=== PATIENT | male | born 1955 | race Caucasian/White ===

== ENCOUNTER 2017-05-27 15:17 | Inpatient (IN) | payer OTHER ==
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
[2017-05-27 18:07] LABS: BASO % 0.8 % (0-2.0); EOS % 0.3 % (0-4.5); HEMATOCRIT 41.8 % (35.4-49); HEMOGLOBIN 14.3 GM/dL (11.7-16.9); LYMPH % 14.6 % (8-40); MCH 31.7 pg (25.7-33.7); MCHC 34.1 g/dl (32.0-35.9); MEAN PLT VOLUME 9.5 fl (7.5-11.1); MONO % 8.8 % (3.8-10.2); NEUT % 75.5 % (42.8-82.8); PLATELET COUNT 255 K/MM3 (134-434); RBC 4.49 M/mm3 (4.00-5.60); RDW 12.9 % (11.9-15.9); WHITE BLOOD COUNT 13.3 K/mm3 (4.0-10.0)
[2017-05-27 18:52] LABS: ALBUMIN 3.8 g/dl (3.4-5.0); ANION GAP 12 (8-16); BILIRUBIN,TOTAL 0.8 mg/dL (0.2-1.0); BLOOD UREA NITROGEN 9 mg/dL (7-18); CALCIUM 8.9 mg/dL (8.5-10.1); CHLORIDE 99 mmol/L (98-107); CO2 22 mmol/L (21-32); CREATININE 0.8 mg/dL (0.7-1.3); SGPT/ALT 26 U/L (12-78); SODIUM 133 mmol/L (136-145); TOT PROT 7.3 g/dl (6.4-8.2)
[2017-05-27 18:53] LABS: ALK PHOS 115 U/L (45-117)
[2017-05-27 19:18] LABS: POTASSIUM 4.5 mmol/L (3.5-5.1); SGOT/AST 19 U/L (15-37)
[2017-05-27 19:19] LABS: GLUCOSE,RANDOM 324 mg/dL (74-106)
[2017-05-27] MEDS ORDERED: PIPERACILLIN/TAZOB 4.5 GM 4.5 GM/100 ML BAG IVPB ONE (19:27)
[2017-05-27] MEDS ORDERED: PIPERACILLIN/TAZOB 3.375 GM/50 ML PRE-DOCKED IVPB ONE (19:34)
[2017-05-27] MEDS ORDERED: morphine CARPU-JECT 2 MG/1 ML DISP.SYRIN IVPUSH ONE ×2 (19:35→22:05)
[2017-05-27] MEDS ORDERED: morphine CARPU-JECT 2 MG/1 ML DISP.SYRIN ONE ×2 (19:51→22:49)
[2017-05-27] MEDS ORDERED: PIPERACILLIN/TAZOB 4.5 GM 4.5 GM/100 ML BAG IVPB SCH (22:00)
--- NOTE | 2017-05-27 23:18 | PDOC ---
*Physical Exam - Vital Signs Last Vital Signs Temp Pulse Resp BP Pulse Ox 98.2 F 102 H 19 146/84 97 05/27/17 15:24 05/27/17 15:24 05/27/17 15:24 05/27/17 15:24 05/27/17 15:24 ED Treatment Course - LABORATORY CBC & Chemistry Diagram: 05/27/17 17:46 05/27/17 17:46 - ADDITIONAL ORDERS Additional order review: Laboratory Results 05/27/17 17:46 Sodium 133 L Potassium 4.5 Chloride 99 Carbon Dioxide 22 Anion Gap 12 BUN 9 Creatinine 0.8 Creat Clearance w eGFR > 60 Random Glucose 324 H* Calcium 8.9 Total Bilirubin 0.8 AST 19 ALT 26 Alkaline Phosphatase 115 Total Protein 7.3 Albumin 3.8 05/27/17 17:46 RBC 4.49 MCV 93.0 MCHC 34.1 RDW 12.9 MPV 9.5 Neutrophils % 75.5 Lymphocytes % 14.6 Monocytes % 8.8 Eosinophils % 0.3 Basophils % 0.8 - Medications Given in the ED: ED Medications Discontinued Medications Generic Name Dose Route Start Last Admin Trade Name Prakash PRN Reason Stop Dose Admin Morphine Sulfate 2 mg 05/27/17 19:35 05/27/17 19:48 Morphine Injection - IVPUSH 05/27/17 19:36 2 mg ONCE ONE Administration Morphine Sulfate 2 mg 05/27/17 22:05 05/27/17 22:41 Morphine Injection - IVPUSH 05/27/17 22:06 2 mg ONCE ONE Administration Piperacillin Sod/Tazobactam Sod 3.375 gm 05/27/17 19:34 05/27/17 19:30 Zosyn 3.375gm Ivpb (Pre-Docked) IVPB 05/27/17 19:35 3.375 gm ONCE ONE Administration Protocol *DC/Admit/Observation/Transfer Diagnosis at time of Disposition: Cellulitis Qualifiers: Site of cellulitis: extremity Site of cellulitis of extremity: toe Laterality: right Qualified Code(s): L03.031 - Cellulitis of right toe Diabetes Qualifiers: Diabetes mellitus type: type 2 Diabetes mellitus complication status: with skin complications Diabetes mellitus complication detail: with other skin complication Diabetes mellitus detention insulin use: without exterminator use Qualified Code(s): E11.628 - Type 2 diabetes mellitus with other skin complications - Discharge Dispostion Condition at time of disposition: Stable Admit: Yes - Referrals Referrals: Amadeo Costello MD [Staff Physician] - - Patient Instructions - Post Discharge Activity
--- NOTE | 2017-05-27 23:20 | PDOC ---
Attending Attestation - Resident Resident Name: MalathimoniqueDeshawn - ED Attending Attestation I have performed the following: I have examined & evaluated the patient, The case was reviewed & discussed with the resident, I agree w/resident's findings & plan, Exceptions are as noted - HPI HPI: 05/27/17 23:20 62 yo male p/w early cellulitis on his foot - Physicial Exam PE: 05/27/17 23:20 wnwd 62 yo male p/w swollen,painful foot with erythema and streaking up his kay 05/27/17 23:21 head ncat neck supple eyes karen eomi lungs cta b/l cvs [id number] abd soft,nontender ,no guarding extremities- foot is swollen,tender and erythematous w streaking up his kay neuro axox3,ambulatory - Medical Decision Making 06/08/17 20:26 IMP cellulitis
[2017-05-28 02:04] VITALS: BMI 27.1
[2017-05-28] MEDS ORDERED: INSULIN (NOVOLOG) ASPART 100 UNITS/ML 10ML VIAL SQ ONE (02:30)
[2017-05-28] MEDS: metFORMIN HCL 500 MG TABLET (FP) PO SCH ×2 (06:39→17:08)
[2017-05-28] MEDS ORDERED: INSULIN (NOVOLOG) ASPART 100 UNITS/ML 10ML VIAL ONE ×2 (06:57→21:06)
[2017-05-28] MEDS ORDERED: INSULIN DETEMIR 100 UNITS/ML MDV SQ ONE (06:57)
[2017-05-28] MEDS ORDERED: PT OWN MED DRAWER 7, Y5N ONE ×3 (06:57→21:07)
[2017-05-28] MEDS ORDERED: INSULIN DETEMIR 100 UNITS/ML MDV SQ SCH (07:00)
[2017-05-28 07:32] LABS: BASO % 0.8 % (0-2.0); EOS % 1.1 % (0-4.5); HEMATOCRIT 41.5 % (35.4-49); LYMPH % 21.6 % (8-40); MCH 31.3 pg (25.7-33.7); MCHC 33.6 g/dl (32.0-35.9); MONO % 10.9 % (3.8-10.2); NEUT % 65.6 % (42.8-82.8); PLATELET COUNT 246 K/MM3 (134-434); RBC 4.46 M/mm3 (4.00-5.60); RDW 12.9 % (11.9-15.9); WHITE BLOOD COUNT 12.4 K/mm3 (4.0-10.0)
[2017-05-28 08:03] LABS: ALBUMIN 3.3 g/dl (3.4-5.0); ALK PHOS 103 U/L (45-117); ANION GAP 12 (8-16); BILIRUBIN,TOTAL 0.6 mg/dL (0.2-1.0); BLOOD UREA NITROGEN 11 mg/dL (7-18); CALCIUM 8.6 mg/dL (8.5-10.1); CHLORIDE 100 mmol/L (98-107); CO2 25 mmol/L (21-32); CREATININE 0.8 mg/dL (0.7-1.3); GLUCOSE,RANDOM 278 mg/dL (74-106); POTASSIUM 3.9 mmol/L (3.5-5.1); SGOT/AST 7 U/L (15-37); SGPT/ALT 21 U/L (12-78); SODIUM 137 mmol/L (136-145); TOT PROT 6.6 g/dl (6.4-8.2)
--- NOTE | 2017-05-28 08:45 | PN ---
Progress Note (short form) - Note Progress Note: ID Full note dictated Selected Entries 05/28/17 06:00 Temperature 99.2 F Pulse Rate 80 Respiratory 18 Rate Blood Pressure 126/66 Soft tissue swelling left 5th toe and to lesser degree 4h toe with ulcer between 4th 5th toe painful to examine Redness dorsum of long winder tender along with red swollen toes Laboratory Tests 05/27/17 05/27/17 05/28/17 17:46 17:46 07:15 WBC 13.3 H Hgb 14.3 Plt Count 255 BUN 11 D Random Glucose 324 H* Assessment Diabetes and SSTI left foot and 5th toe with ulcer Plan Blood cultures Unasyn 1.5grs q 6 H CRP Vascular evaluation Alise ALEX Problem List - Problems (1) Cellulitis Code(s): L03.90 - CELLULITIS, UNSPECIFIED Qualifiers: Site of cellulitis: extremity Site of cellulitis of extremity: toe Laterality: right Qualified Code(s): L03.031 - Cellulitis of right toe (2) Diabetes Code(s): E11.9 - TYPE 2 DIABETES MELLITUS WITHOUT COMPLICATIONS Qualifiers: Diabetes mellitus type: type 2 Diabetes mellitus complication status: with skin complications Diabetes mellitus complication detail: with other skin complication 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
[2017-05-28] MEDS ORDERED: CEFTRIAXONE 1 G/50 ML PREMIX 50 ML IVPB SCH (10:00)
[2017-05-28] MEDS ORDERED: FLU VACCINE QUAD 60 MCG/0.5 ML (MDV 17-18) IM ONE (10:00)
[2017-05-28] MEDS: AMPICILLIN NA/SULBACTAM NA 1.5 GM in SODIUM CHLORIDE 100 ML IVPB SCH ×3 (10:25→21:14)
[2017-05-28] MEDS: HEPARIN NA (PORCINE) 5,000 UNITS/ML 1ML VIAL SQ SCH ×2 (10:27→21:14)
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
[2017-05-28] MEDS: INSULIN SLIDING SCALE (NOVOLOG) 1 VIAL SQ SCH ×3 (12:05→21:16)
--- NOTE | 2017-05-28 12:37 | PN ---
Progress Note (short form) - Note Progress Note: Vascular Surgery Pt seen and examined. Right fifth toe swelling with cellulitis of right foot. Pt has palpable DP and PT pulses. ID treating with IV antbiotics. Will order MRI of right foot to make sure there is no collection, and to rule out osteo. Will follow Krzysztof perera DO
[2017-05-28] MEDS ORDERED: ACETAMINOPHEN 325 MG TABLET (FP) PO PRN (13:29)
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
[2017-05-28 18:00] LABS: URINE APPEARANCE CLEAR; URINE BILIRUBIN NEGATIVE (NEGATIVE); URINE BLOOD NEGATIVE (NEGATIVE); URINE COLOR LTYELLOW; URINE GLUCOSE (UA) 3+ (NEGATIVE); URINE KETONE TRACE (NEGATIVE); URINE LEUK ESTERASE NEGATIVE (NEGATIVE); URINE NITRITE NEGATIVE (NEGATIVE); URINE PROTEIN NEGATIVE (NEGATIVE); URINE UROBILINOGEN NEGATIVE mg/dL (0.2-1.0)
[2017-05-28] MEDS: INSULIN DETEMIR 100 UNITS/ML MDV SQ SCH (21:17)
[2017-05-28] MEDS: oxyCODONE HCL 5 MG TABLET PO PRN (22:02)
[2017-05-29] MEDS: AMPICILLIN NA/SULBACTAM NA 1.5 GM in SODIUM CHLORIDE 100 ML IVPB SCH ×4 (02:21→20:56)
[2017-05-29] MEDS: metFORMIN HCL 500 MG TABLET (FP) PO SCH ×2 (06:25→16:48)
[2017-05-29] MEDS: INSULIN SLIDING SCALE (NOVOLOG) 1 VIAL SQ SCH ×4 (06:26→21:14)
[2017-05-29] MEDS: INSULIN DETEMIR 100 UNITS/ML MDV SQ SCH ×2 (06:26→21:14)
[2017-05-29] MEDS: oxyCODONE HCL 5 MG TABLET PO PRN ×3 (06:30→21:08)
[2017-05-29 07:32] LABS: BASO % 0.6 % (0-2.0); EOS % 1.5 % (0-4.5); HEMATOCRIT 42.5 % (35.4-49); HEMOGLOBIN 14.4 GM/dL (11.7-16.9); LYMPH % 20.9 % (8-40); MCH 31.6 pg (25.7-33.7); MCHC 33.9 g/dl (32.0-35.9); MONO % 10.7 % (3.8-10.2); NEUT % 66.3 % (42.8-82.8); PLATELET COUNT 258 K/MM3 (134-434); RBC 4.57 M/mm3 (4.00-5.60); WHITE BLOOD COUNT 11.7 K/mm3 (4.0-10.0)
[2017-05-29 08:09] LABS: ALBUMIN 3.3 g/dl (3.4-5.0); ANION GAP 10 (8-16); BLOOD UREA NITROGEN 11 mg/dL (7-18); CALCIUM 8.5 mg/dL (8.5-10.1); CHLORIDE 102 mmol/L (98-107); CO2 23 mmol/L (21-32); CREATININE 0.9 mg/dL (0.7-1.3); GLUCOSE,RANDOM 262 mg/dL (74-106); POTASSIUM 3.8 mmol/L (3.5-5.1); SGOT/AST 9 U/L (15-37); SGPT/ALT 19 U/L (12-78); SODIUM 135 mmol/L (136-145)
[2017-05-29 08:10] LABS: ALK PHOS 98 U/L (45-117); BILIRUBIN,TOTAL 0.8 mg/dL (0.2-1.0); TOT PROT 6.9 g/dl (6.4-8.2)
[2017-05-29] MEDS ORDERED: PT OWN MED DRAWER 7, Y5N ONE (09:57)
[2017-05-29] MEDS: HEPARIN NA (PORCINE) 5,000 UNITS/ML 1ML VIAL SQ SCH ×2 (10:03→21:09)
--- NOTE | 2017-05-29 10:43 | PN ---
Progress Note, Physician Chief Complaint: Right foot cellulitis History of Present Illness: NAD, in bed self ambulatory, independent uncontrolled diabetes seen by ID and Vascular Sx MRI negative for osteomyelitis on IV abx, responding well, wbc decreased, pain improved, afebrile - Current Medication List Current Medications: Active Medications Acetaminophen (Tylenol -) 650 mg PO Q4H PRN PRN Reason: FEVER OR PAIN Heparin Sodium (Porcine) (Heparin -) 5,000 unit SQ BID MARY Last Admin: 05/29/17 10:03 Dose: 5,000 unit Ampicillin Sodium/Sulbactam (Sodium 1.5 gm/ Sodium Chloride) 100 mls @ 200 mls/ hr IVPB Q6H-IV MARY Last Admin: 05/29/17 10:02 Dose: 200 mls/hr Insulin Aspart (Novolog Vial Sliding Scale -) 1 vial SQ HS MARY PRN Reason: Protocol Last Admin: 05/28/17 21:16 Dose: 8 units Insulin Aspart (Novolog Vial Sliding Scale -) 1 vial SQ TIDAC MARY PRN Reason: Protocol Last Admin: 05/29/17 06:26 Dose: 6 units Insulin Detemir (Levemir Vial) 12 units SQ BID@0700,2200 [facility] Last Admin: 05/29/17 06:26 Dose: 12 units Metformin HCl (Glucophage -) 500 mg PO BIDAC [facility] Last Admin: 05/29/17 06:25 Dose: 500 mg Oxycodone HCl (Roxicodone -) 5 mg PO Q6H PRN PRN Reason: PAIN Last Admin: 05/29/17 06:30 Dose: 5 mg - Objective Vital Signs: Vital Signs Temperature 98.8 F 05/29/17 09:55 Pulse Rate 80 05/29/17 09:55 Respiratory Rate 20 05/29/17 09:55 Blood Pressure 140/70 05/29/17 09:55 O2 Sat by Pulse Oximetry (%) 98 05/28/17 21:00 Constitutional: Yes: Well Nourished, No Distress, Calm Cardiovascular: Yes: Regular Rate and Rhythm Respiratory: Yes: Regular Gastrointestinal: Yes: Normal Bowel Sounds Musculoskeletal: Yes: WNL Extremities: Yes: Erythema (right foot, warm to touch) Edema: Yes (right dorsal foot) Peripheral Pulses WNL: Yes Neurological: Yes: Alert, Oriented Psychiatric: Yes: Alert, Oriented Labs: CBC, BMP 05/29/17 07:00 05/29/17 07:00 Problem List - Problems (1) Diabetes mellitus Assessment/Plan: -long and short acting insulin adjusted -A1c pending -diabetic diet -RD consult -endocrine consult appreciated Code(s): E11.9 - TYPE 2 DIABETES MELLITUS WITHOUT COMPLICATIONS (2) Cellulitis of foot, right Assessment/Plan: -ID consult -IV abx, switch to PO? -Vascular consult appreciated -MRI right foot negative for osteo -RLE elevation Code(s): L03.115 - CELLULITIS OF RIGHT LOWER LIMB Assessment/Plan see problem list
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
[2017-05-29] MEDS ORDERED: INSULIN (NOVOLOG) ASPART 100 UNITS/ML 10ML VIAL ONE ×3 (11:27→21:48)
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
--- NOTE | 2017-05-29 13:48 | PN ---
Progress Note, Physician History of Present Illness: Reports less foot pain/ swelling No fever/ chills BC (-) MRI No osteo; possible abscess - Current Medication List Current Medications: Active Medications Acetaminophen (Tylenol -) 650 mg PO Q4H PRN PRN Reason: FEVER OR PAIN Heparin Sodium (Porcine) (Heparin -) 5,000 unit SQ BID MARY Last Admin: 05/29/17 10:03 Dose: 5,000 unit Ampicillin Sodium/Sulbactam (Sodium 1.5 gm/ Sodium Chloride) 100 mls @ 200 mls/ hr IVPB Q6H-IV MARY Last Admin: 05/29/17 10:02 Dose: 200 mls/hr Insulin Aspart (Novolog Vial Sliding Scale -) 1 vial SQ HS MARY PRN Reason: Protocol Last Admin: 05/28/17 21:16 Dose: 8 units Insulin Aspart (Novolog Vial Sliding Scale -) 1 vial SQ TIDAC MARY PRN Reason: Protocol Insulin Detemir (Levemir Vial) 16 units SQ BID@0700,2200 MARY Metformin HCl (Glucophage -) 500 mg PO BIDAC MARY Last Admin: 05/29/17 06:25 Dose: 500 mg Oxycodone HCl (Roxicodone -) 5 mg PO Q6H PRN PRN Reason: PAIN Last Admin: 05/29/17 11:33 Dose: 5 mg - Objective Vital Signs: Vital Signs Temperature 98.8 F 05/29/17 09:55 Pulse Rate 80 05/29/17 09:55 Respiratory Rate 20 05/29/17 09:55 Blood Pressure 140/70 05/29/17 09:55 O2 Sat by Pulse Oximetry (%) 99 05/29/17 09:00 Constitutional: Yes: No Distress Eyes: Yes: Conjunctiva Clear Cardiovascular: Yes: Regular Rate and Rhythm, S1, S2 Respiratory: Yes: CTA Bilaterally Gastrointestinal: Yes: Normal Bowel Sounds, Soft. No: Tenderness Extremities: Yes: Other (+ swelling/ erythema dorsum R foot + blister, webspace R 4/5 toes) Labs: CBC, BMP 05/29/17 07:00 05/29/17 07:00 Assessment/Plan Cellulitis R foot Possible soft tissue abscess Continue Unasyn Podiatry evaluation for possible I&D
[2017-05-30] MEDS: AMPICILLIN NA/SULBACTAM NA 1.5 GM in SODIUM CHLORIDE 100 ML IVPB SCH ×4 (02:16→21:04)
[2017-05-30] MEDS: metFORMIN HCL 500 MG TABLET (FP) PO SCH ×2 (06:36→17:12)
[2017-05-30] MEDS: INSULIN DETEMIR 100 UNITS/ML MDV SQ SCH ×2 (06:36→21:40)
[2017-05-30] MEDS: INSULIN SLIDING SCALE (NOVOLOG) 1 VIAL SQ SCH ×4 (06:37→21:40)
[2017-05-30] MEDS ORDERED: INSULIN (NOVOLOG) ASPART 100 UNITS/ML 10ML VIAL ONE ×2 (06:53→11:53)
[2017-05-30] MEDS: oxyCODONE HCL 5 MG TABLET PO PRN ×2 (07:08→17:11)
[2017-05-30] MEDS: HEPARIN NA (PORCINE) 5,000 UNITS/ML 1ML VIAL SQ SCH ×2 (09:02→21:40)
--- NOTE | 2017-05-30 10:41 | PN ---
Progress Note, Physician Chief Complaint: Right foot cellulitis History of Present Illness: NAD, in bed self ambulatory, independent uncontrolled diabetes seen by ID and Vascular Sx MRI negative for osteomyelitis on IV abx, responding well, wbc decreased, pain improved, afebrile - Current Medication List Current Medications: Active Medications Acetaminophen (Tylenol -) 650 mg PO Q4H PRN PRN Reason: FEVER OR PAIN Heparin Sodium (Porcine) (Heparin -) 5,000 unit SQ BID MARY Last Admin: 05/30/17 09:02 Dose: 5,000 unit Ampicillin Sodium/Sulbactam (Sodium 1.5 gm/ Sodium Chloride) 100 mls @ 200 mls/ hr IVPB Q6H-IV MARY Last Admin: 05/30/17 08:57 Dose: 200 mls/hr Insulin Aspart (Novolog Vial Sliding Scale -) 1 vial SQ HS MARY PRN Reason: Protocol Last Admin: 05/29/17 21:14 Dose: 8 units Insulin Aspart (Novolog Vial Sliding Scale -) 1 vial SQ TIDAC MARY PRN Reason: Protocol Last Admin: 05/30/17 06:37 Dose: 10 units Insulin Detemir (Levemir Vial) 16 units SQ BID@0700,2200 [facility] Last Admin: 05/30/17 06:36 Dose: 16 units Metformin HCl (Glucophage -) 500 mg PO BIDAC [facility] Last Admin: 05/30/17 06:36 Dose: 500 mg Oxycodone HCl (Roxicodone -) 5 mg PO Q6H PRN PRN Reason: PAIN Last Admin: 05/30/17 07:08 Dose: 5 mg - Objective Vital Signs: Vital Signs Temperature 97.9 F 05/30/17 09:00 Pulse Rate 82 05/30/17 09:00 Respiratory Rate 18 05/30/17 09:00 Blood Pressure 112/68 05/30/17 09:00 O2 Sat by Pulse Oximetry (%) 98 05/29/17 21:00 Constitutional: Yes: Well Nourished, No Distress, Calm Cardiovascular: Yes: Regular Rate and Rhythm Respiratory: Yes: Regular Musculoskeletal: Yes: WNL Extremities: Yes: Erythema Edema: Yes (right foot) Peripheral Pulses WNL: Yes Neurological: Yes: Alert, Oriented Psychiatric: Yes: Alert, Oriented Labs: CBC, BMP 05/29/17 07:00 05/29/17 07:00 Problem List - Problems (1) Diabetes mellitus Assessment/Plan: -long and short acting insulin adjusted -A1c 13.3 -diabetic diet -RD consult -endocrine consult appreciated Code(s): E11.9 - TYPE 2 DIABETES MELLITUS WITHOUT COMPLICATIONS (2) Cellulitis of foot, right Assessment/Plan: -ID consult -IV abx, -Vascular consult appreciated -MRI right foot negative for osteo -RLE elevation -I&D,, culture pending Code(s): L03.115 - CELLULITIS OF RIGHT LOWER LIMB Assessment/Plan see problem list
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
--- NOTE | 2017-05-30 14:20 | PN ---
Progress Note, Physician Chief Complaint: ID Unasyn continues - Current Medication List Current Medications: Active Medications Acetaminophen (Tylenol -) 650 mg PO Q4H PRN PRN Reason: FEVER OR PAIN Heparin Sodium (Porcine) (Heparin -) 5,000 unit SQ BID MARY Last Admin: 05/30/17 09:02 Dose: 5,000 unit Ampicillin Sodium/Sulbactam (Sodium 1.5 gm/ Sodium Chloride) 100 mls @ 200 mls/ hr IVPB Q6H-IV MARY Last Admin: 05/30/17 08:57 Dose: 200 mls/hr Insulin Aspart (Novolog Vial Sliding Scale -) 1 vial SQ HS MARY PRN Reason: Protocol Last Admin: 05/29/17 21:14 Dose: 8 units Insulin Aspart (Novolog Vial Sliding Scale -) 1 vial SQ TIDAC MARY PRN Reason: Protocol Insulin Detemir (Levemir Vial) 18 units SQ BID@0700,2200 MARY Metformin HCl (Glucophage -) 500 mg PO BIDAC MARY Last Admin: 05/30/17 06:36 Dose: 500 mg Oxycodone HCl (Roxicodone -) 5 mg PO Q6H PRN PRN Reason: PAIN Last Admin: 05/30/17 07:08 Dose: 5 mg - Objective Vital Signs: Vital Signs Temperature 97.9 F 05/30/17 09:00 Pulse Rate 82 05/30/17 09:00 Respiratory Rate 18 05/30/17 09:00 Blood Pressure 112/68 05/30/17 09:00 O2 Sat by Pulse Oximetry (%) 98 05/29/17 21:00 Neck: Yes: WNL, Supple Cardiovascular: Yes: Regular Rate and Rhythm, S1, S2. No: Murmur Respiratory: Yes: WNL, Regular, CTA Bilaterally Gastrointestinal: Yes: WNL, Normal Bowel Sounds, Soft. No: Tenderness Extremities: Yes: Other (purulent blister between the toes with erythema) Labs: CBC, BMP 05/29/17 07:00 05/29/17 07:00 Problem List - Problems (1) Cellulitis Code(s): L03.90 - CELLULITIS, UNSPECIFIED Qualifiers: Site of cellulitis: extremity Site of cellulitis of extremity: toe Laterality: right Qualified Code(s): L03.031 - Cellulitis of right toe (2) Diabetes Code(s): E11.9 - TYPE 2 DIABETES MELLITUS WITHOUT COMPLICATIONS Qualifiers: Diabetes mellitus type: type 2 Diabetes mellitus complication status: with skin complications Diabetes mellitus complication detail: with other skin complication Diabetes mellitus care home insulin use: without phlebotomy services technician use Qualified Code(s): E11.628 - Type 2 diabetes mellitus with other skin complications Assessment/Plan Microbiology 05/28/17 10:35 Blood - Peripheral Venous Blood Culture - Preliminary NO GROWTH OBTAINED AFTER 48 HOURS, INCUBATION TO CONTINUE FOR 3 DAYS. 05/28/17 10:30 Blood - Peripheral Venous Blood Culture - Preliminary NO GROWTH OBTAINED AFTER 48 HOURS, INCUBATION TO CONTINUE FOR 3 DAYS. Laboratory Tests 05/27/17 05/28/17 05/29/17 17:46 07:15 07:00 WBC 13.3 H 12.4 H 11.7 H Assessment Cellulitis with abscess Plan I and D pending Dr Bar today Continue antibiotic Alise ALEX
[2017-05-30] MEDS: BACITRACIN 15 GM TUBE TOPICAL OINTMENT TP SCH (17:12)
--- NOTE | 2017-05-30 18:05 | PN ---
Progress Note (short form) - Note Progress Note: Vascular Surgery Pt seen and examined. Right foot abscess drained. Pus came out. Pus was cultured. Wound is now clean. bacitracin to wound daily. await cx results. Krzysztof Bar DO
[2017-05-31] MEDS: AMPICILLIN NA/SULBACTAM NA 1.5 GM in SODIUM CHLORIDE 100 ML IVPB SCH ×2 (02:50→09:49)
[2017-05-31] MEDS: INSULIN DETEMIR 100 UNITS/ML MDV SQ SCH (06:36)
[2017-05-31] MEDS: metFORMIN HCL 500 MG TABLET (FP) PO SCH (06:36)
[2017-05-31] MEDS: INSULIN SLIDING SCALE (NOVOLOG) 1 VIAL SQ SCH ×2 (06:37→11:45)
[2017-05-31] MEDS ORDERED: INSULIN (NOVOLOG) ASPART 100 UNITS/ML 10ML VIAL ONE (06:47)
[2017-05-31] MEDS ORDERED: PT OWN MED DRAWER 7, Y5N ONE (08:34)
[2017-05-31] MEDS: HEPARIN NA (PORCINE) 5,000 UNITS/ML 1ML VIAL SQ SCH (09:49)
[2017-05-31] MEDS: BACITRACIN 15 GM TUBE TOPICAL OINTMENT TP SCH (09:49)
--- NOTE | 2017-05-31 10:22 | PN ---
Progress Note (short form) - Note Progress Note: ID Unasyn S/P incision drainage of purulent abscess between the toes Selected Entries 05/31/17 05:01 Temperature 98.1 F Respiratory 18 Rate Blood Pressure 122/71 Laboratory Tests 05/28/17 05/29/17 10:49 07:00 WBC 11.7 H Hgb 14.4 Plt Count 258 C-Reactive Protein 6.6 H Assessment Abscess LE with cellulitis improving Plan HE looks ready to be discharged Culture will take 48 hours Augmentin 875 bid for home Alise ALEX Problem List - Problems (1) Cellulitis Code(s): L03.90 - CELLULITIS, UNSPECIFIED Qualifiers: Site of cellulitis: extremity Site of cellulitis of extremity: toe Laterality: right Qualified Code(s): L03.031 - Cellulitis of right toe (2) Diabetes Code(s): E11.9 - TYPE 2 DIABETES MELLITUS WITHOUT COMPLICATIONS Qualifiers: Diabetes mellitus type: type 2 Diabetes mellitus complication status: with skin complications Diabetes mellitus complication detail: with other skin complication Diabetes mellitus chcf insulin use: without termite helper use Qualified Code(s): E11.628 - Type 2 diabetes mellitus with other skin complications
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
[2017-05-31] MEDS ORDERED: INSULIN SLIDING SCALE (NOVOLOG) 1 VIAL SQ SCH (12:49)
[2017-05-31 14:28] VITALS: BP 110/67; PULSE 78; TEMP 99.4
--- NOTE | 2017-05-31 14:45 | DS ---
Physical Examination Vital Signs: Vital Signs Temperature 99.4 F 05/31/17 14:26 Pulse Rate 78 05/31/17 14:26 Respiratory Rate 18 05/31/17 05:01 Blood Pressure 110/67 05/31/17 14:26 O2 Sat by Pulse Oximetry (%) 95 05/30/17 21:00 Constitutional: Yes: No Distress Eyes: Yes: WNL HENT: Yes: WNL Neck: Yes: WNL Cardiovascular: Yes: WNL Respiratory: Yes: WNL Gastrointestinal: Yes: WNL Musculoskeletal: Yes: Other Extremities: Yes: Deformity Edema: No Peripheral Pulses WNL: Yes Integumentary: Yes: Pressure Ulcer Wound/Incision: Yes: Dressing Dry and Intact Neurological: Yes: Other ...Motor Strength: LLE, RLE Psychiatric: Yes: Other Labs: CBC, BMP 05/29/17 07:00 05/29/17 07:00 Discharge Summary Reason For Visit: DIABETES MELLITUS,CELLULITIS Current Active Problems Cellulitis (Acute) Cellulitis of foot, right (Acute) Diabetes (Acute) Diabetes mellitus (Acute) Procedures: Principal: i and right foot Hospital Course: ADMITTED IV ABX FOR RIGHT FOOT I AND D, AWAIT CX, SEND HOME AUGMENTIN BID, F/U 2 -3 DAYS [facility], SEE DR PALMER 2-3 DAYS Condition: Stable - Instructions Diet, Activity, Other Instructions: Diabetic diet Follow up with Dr Krzysztof Bar at [facility] by making an appointment by calling at [phone] PALMER 2-3 DAYS Referrals: Amadeo Palmer MD [Staff Physician] - Disposition: HOME - Home Medications Comprehensive Discharge Medication List: Ambulatory Orders Metformin HCl [Glucophage -] 500 mg PO BID 05/23/17 Naproxen [Naprosyn -] 500 mg PO BID #20 tablet 05/23/17 Insulin (Levemir) [Levemir Flexpen -] 0 units SQ DAILY #1 pen 05/29/17 Metformin HCl [Glucophage -] 500 mg PO BIDAC #60 tablet 05/29/17 Acetaminophen [Tylenol .Regular Strength -] 650 mg PO Q4H PRN tablet 05/31/17 Amoxicillin/Potassium Clav [Augmentin 875-125 Tablet] 1 each PO BID #14 tablet 05/31/17 Bacitracin - [Bacitracin Topical Ointment -] 1 applic TP DAILY #90 tube Insulin (Levemir) [Levemir Vial] 22 units SQ BID@0700,2200 ml 05/31/17
[2017-05-31] MEDS ORDERED: INSULIN DETEMIR 100 UNITS/ML MDV SQ SCH (22:00)
== END 2017-05-31 15:39 | disposition home or self-care (01) | DRG 638 ==
LOC: JER 15:17 → JERBED 23:18 → J5S 05-28 01:23
PROVIDERS: ADMIT Family Medicine; ATTEND Family Medicine
PROC: 0Y9M0ZX Drainage of Right Foot, Open Approach, Diagnostic (ICD-10-PCS; principal; 2017-05-30)
DX: E11.621 Type 2 diabetes mellitus with foot ulcer (principal); L02.611 Cutaneous abscess of right foot; I10 Essential (primary) hypertension; M79.1 Myalgia; E11.65 Type 2 diabetes mellitus with hyperglycemia; L03.031 Cellulitis of right toe
CPT/HCPCS: 36415; 73630-TC-RT; 73721-RT-TC; 80053; 81003; 83036; 85025; 86140; 87040; 87070; 87077; 87186; 87205; 90688; 93971-TC; 99284-25; G0008; J1644